=== PATIENT | female | born 1970 | race Caucasian/White ===

== ENCOUNTER 2017-03-12 09:10 | Emergency (ER) | payer OTHER ==
[2017-03-12] MEDS: ACETAMINOPHEN 500 MG TAB PO (11:28)
[2017-03-12] MEDS: IBUPROFEN 600 MG TAB PO (11:28)
[2017-03-12] MEDS: ONDANSETRON (ODT) 4 MG TAB ODT (11:28)
== END 2017-03-12 11:57 | disposition home or self-care (01) ==
LOC: FTE 11:57
DX: R05 Cough (principal); R09.81 Nasal congestion
CPT/HCPCS: 99284; Z7502